=== PATIENT | female | born 1980 | race Caucasian/White ===

== ENCOUNTER 2018-07-10 23:59 | Inpatient (IN) | payer SELFPAY ==
[~2018-07-10] VITALS: Ht 172.7 cm; Wt 113.0 kg
[2018-07-11] MEDS ORDERED: D5%-LACTATED RINGERS 1,000 ML IV SCH (00:20)
[2018-07-11] MEDS ORDERED: LACTATED RINGERS 1,000 ML IV SCH ×2 (00:20→01:27)
[2018-07-11] MEDS ORDERED: OXYTOCIN 30U/ 0.9% NaCL 500ML 500 ML IV ONE (00:20)
[2018-07-11] MEDS ORDERED: NEWBORN KIT ONE (00:22)
[2018-07-11] MEDS ORDERED: LIDOCAINE/PF 1%, 30ML ONE (00:22)
[2018-07-11] MEDS ORDERED: MISOPROSTOL 200 MCG TABLET ONE (00:22)
[2018-07-11] MEDS ORDERED: OXYTOCIN 30U/ 0.9% NaCL 500ML 500 ML ONE ×2 (00:23→02:53)
[2018-07-11] MEDS ORDERED: FENTANYL PF 100 MCG/2ML IVPush PRN (00:30)
[2018-07-11] MEDS ORDERED: TERBUTALINE 1 MG/ML, 1ML IVPush PRN (00:30)
[2018-07-11] MEDS ORDERED: FENTANYL PF 100 MCG/2ML IV PRN (00:30)
[2018-07-11] MEDS ORDERED: ONDANSETRON 2MG/ML, 2ML IVPush PRN (00:30)
[2018-07-11] MEDS ORDERED: CALCIUM CARBONATE 500 MG TAB.CHEW PO PRN (00:30)
[2018-07-11] MEDS ORDERED: PLEASE ENTER ALLERGIES MC SCH (00:30)
[2018-07-11] MEDS ORDERED: SODIUM CITRATE/CITRIC ACID 30 ML UDC PO PRN (00:30)
[2018-07-11] MEDS ORDERED: METOCLOPRAMIDE 5 MG/ML, 2ML IVPush PRN (00:30)
[2018-07-11 00:48] LABS: BASOPHILS # (AUTO) 0.04 x10^3/uL (0-0.1); BASOPHILS % (AUTO) 0 % (0-1); EOSINOPHILS # (AUTO) 0.05 x10^3/uL (0-0.4); EOSINOPHILS % (AUTO) 0 % (1-7); LYMPHOCYTES # (AUTO) 1.33 x10^3/uL (1-3.4); LYMPHOCYTES % (AUTO) 10 % (22-44); MD NO; MEAN CORPUSCULAR HEMOGLOBIN 34.7 pg (27.0-34.8); MEAN CORPUSCULAR HGB CONC 34.4 g/dL (32.4-35.8); MEAN CORPUSCULAR VOLUME 100.7 fL (80-100); MEAN PLATELET VOLUME 7.4 fL (7.4-10.4); MONOCYTES # (AUTO) 1.34 x10^3/uL (0.2-0.8); MONOCYTES % (AUTO) 10 % (2-9); NEUTROPHILS # (AUTO) 11.09 x10^3/uL (1.8-6.8); NEUTROPHILS % (AUTO) 80 % (42-75); PLATELET COUNT 198 x10^3/uL (130-400); RED BLOOD COUNT 3.76 x10^6/uL (3.82-5.3); RED CELL DISTRIBUTION WIDTH 13.3 % (9.6-15.2)
[2018-07-11] MEDS ORDERED: FENTANYL/BUPIV./NS/PF 250 ML EPIDCONT ONE (01:02)
[2018-07-11] MEDS ORDERED: BUPIVACAINE 0.25% ONE (01:02)
[2018-07-11] MEDS ORDERED: FENTANYL/BUPIV./NS/PF 250 ML EPIDCONT SCH (01:27)
[2018-07-11] MEDS ORDERED: EPHEDRINE 50 MG/ML, 1ML IVPush PRN (01:30)
[2018-07-11] MEDS ORDERED: LACTATED RINGERS 1,000 ML IVBOLUS PRN (01:30)
[2018-07-11] MEDS ORDERED: NALOXONE 0.4 MG/ML, 1ML IVPush PRN (01:30)
[2018-07-11] MEDS ORDERED: OXYTOCIN 30U/ 0.9% NaCL 500ML 500 ML IV SCH (02:14)
[2018-07-11] MEDS ORDERED: OXYcodone/APAP 5/325MG TABLET PO PRN (02:30)
[2018-07-11] MEDS ORDERED: GLYCERIN ADULT SUPP PR PRN (02:30)
[2018-07-11] MEDS ORDERED: MISOPROSTOL 200 MCG TABLET PR PRN (02:30)
[2018-07-11] MEDS ORDERED: DOCUSATE 100 MG CAPSULE PO PRN (02:30)
[2018-07-11] MEDS ORDERED: ACETAMINOPHEN 325 MG TABLET PO PRN (02:30)
[2018-07-11] MEDS ORDERED: ONDANSETRON 2MG/ML, 2ML IV PRN (02:30)
[2018-07-11] MEDS ORDERED: METHYLERGONOVINE 0.2 MG/ML IM PRN (02:30)
[2018-07-11] MEDS ORDERED: METOCLOPRAMIDE 5 MG/ML, 2ML IV PRN (02:30)
[2018-07-11] MEDS ORDERED: OXYcodone IR 5MG TABLET PO PRN (02:30)
[2018-07-11 08:43] VITALS: BP 120/80
[2018-07-11] MEDS: PRENATAL VIT/IRON/FA 1 EACH TABLET PO SCH (09:00)
[2018-07-11 09:47] LABS: BASOPHILS # (AUTO) 0.04 x10^3/uL (0-0.1); BASOPHILS % (AUTO) 0 % (0-1); EOSINOPHILS # (AUTO) 0.04 x10^3/uL (0-0.4); EOSINOPHILS % (AUTO) 0 % (1-7); LYMPHOCYTES % (AUTO) 12 % (22-44); MD NO; MEAN CORPUSCULAR HEMOGLOBIN 34.6 pg (27.0-34.8); MEAN CORPUSCULAR HGB CONC 34.3 g/dL (32.4-35.8); MEAN CORPUSCULAR VOLUME 100.9 fL (80-100); MEAN PLATELET VOLUME 7.3 fL (7.4-10.4); MONOCYTES # (AUTO) 1.01 x10^3/uL (0.2-0.8); MONOCYTES % (AUTO) 8 % (2-9); NEUTROPHILS # (AUTO) 9.56 x10^3/uL (1.8-6.8); NEUTROPHILS % (AUTO) 79 % (42-75); PLATELET COUNT 179 x10^3/uL (130-400); RED BLOOD COUNT 3.58 x10^6/uL (3.82-5.3); RED CELL DISTRIBUTION WIDTH 13.3 % (9.6-15.2)
[2018-07-11] MEDS: IBUPROFEN 600 MG TABLET PO PRN (12:02)
[2018-07-11 12:11] VITALS: BP 133/84
[2018-07-11 16:30] VITALS: BP 126/84
[2018-07-11 19:35] VITALS: BP 121/82
[2018-07-12 00:01] VITALS: BP 134/88
[2018-07-12 07:00] VITALS: BP 120/82
[2018-07-12] MEDS: PRENATAL VIT/IRON/FA 1 EACH TABLET PO SCH (07:23)
[2018-07-12] MEDS: IBUPROFEN 600 MG TABLET PO PRN (07:23)
== END 2018-07-12 11:48 | disposition home or self-care (01) | DRG 807 ==
LOC: LDOP 23:59 → LDIP 07-11 00:22 → 2NW 07-11 07:47
PROVIDERS: ADMIT Obstetrics & Gynecology; ATTEND Obstetrics & Gynecology
PROC: 10E0XZZ Delivery of Products of Conception, External Approach (ICD-10-PCS; principal; 2018-07-11)
PROC: 0HQ9XZZ Repair Perineum Skin, External Approach (ICD-10-PCS; 2018-07-11)
PROC: 10907ZC Drainage of Amniotic Fluid, Therapeutic from Products of Conception, Via Natural or Artificial Opening (ICD-10-PCS; 2018-07-11)
PROC: 3E0R3BZ Introduction of Anesthetic Agent into Spinal Canal, Percutaneous Approach (ICD-10-PCS; 2018-07-11)
PROC: 00HU33Z Insertion of Infusion Device into Spinal Canal, Percutaneous Approach (ICD-10-PCS; 2018-07-11)
DX: O69.81X0 Labor and delivery complicated by cord around neck, without compression, not applicable or unspecified (principal); Z37.0 Single live birth; O70.0 First degree perineal laceration during delivery; O77.0 Labor and delivery complicated by meconium in amniotic fluid; Z3A.40 40 weeks gestation of pregnancy; N84.1 Polyp of cervix uteri; O34.43 Maternal care for other abnormalities of cervix, third trimester; O99.214 Obesity complicating childbirth
CPT/HCPCS: 36415; 82803; 85025; 86850; 86900; G0378; J3490; J2590; J3010; J7120

== ENCOUNTER 2020-09-24 12:14 | Inpatient (IN) | payer OTHER ==
[~2020-09-24] VITALS: Ht 172.7 cm; Wt 111.9 kg
[2020-09-24] MEDS: LACTATED RINGERS 1,000 ML IV SCH (11:07)
[2020-09-24] MEDS ORDERED: PREN1TAB60 PO (12:26)
[2020-09-24 12:35] VITALS: BP 144/86
[2020-09-24 12:55] LABS: MICROSCOPIC INDICATED
[2020-09-24 12:58] LABS: CREATININE,URINE RANDOM 42.5 mg/dL
[2020-09-24 13:07] LABS: BASOPHILS % (AUTO) 0 % (0-1); EOSINOPHILS % (AUTO) 1 % (1-7); LYMPHOCYTES % (AUTO) 20 % (22-44); MEAN CORPUSCULAR HEMOGLOBIN 33.9 pg (27.0-34.8); MEAN CORPUSCULAR HGB CONC 34.4 g/dL (32.4-35.8); MEAN PLATELET VOLUME 7.8 fL (7.4-10.4); MONOCYTES % (AUTO) 11 % (2-9); NEUTROPHILS % (AUTO) 68 % (42-75); PLATELET COUNT 213 x10^3/uL (130-400); RED BLOOD COUNT 3.84 x10^6/uL (3.82-5.3); RED CELL DISTRIBUTION WIDTH 12.9 % (9.6-15.2)
[2020-09-24 13:08] LABS: MD NO
[2020-09-24 13:15] LABS: ALANINE AMINOTRANSFERASE 17 U/L (12-78); ALBUMIN 2.7 g/dL (3.4-5.0); ANION GAP 9 mmol/L (5-15); CALCIUM 9.1 mg/dL (8.5-10.1); CHLORIDE 108 mmol/L (98-107); CREATININE 0.51 mg/dL (0.55-1.02)
[2020-09-24 13:17] LABS: ALKALINE PHOSPHATASE 96 U/L (45-117); BILIRUBIN,TOTAL 0.7 mg/dL (0.2-1.0); TOTAL PROTEIN 6.3 g/dL (6.4-8.2)
[2020-09-24 13:21] LABS: BILIRUBIN, DIRECT < 0.1 mg/dL (0.1-0.2)
[2020-09-24] MEDS ORDERED: TERBUTALINE 1 MG/ML, 1ML SQ ONE (14:00)
[2020-09-24] MEDS ORDERED: TERBUTALINE 1 MG/ML, 1ML ONE (16:34)
[2020-09-24] MEDS ORDERED: CALCIUM CARBONATE 500 MG TAB.CHEW PO PRN (19:00)
[2020-09-24] MEDS ORDERED: TERBUTALINE 1 MG/ML, 1ML IVPush PRN (19:00)
[2020-09-24] MEDS ORDERED: TERBUTALINE 1 MG/ML, 1ML SQ PRN (19:00)
[2020-09-24] MEDS ORDERED: OXYTOCIN 30U/ 0.9% NaCL 500ML 500 ML IV ONE (19:00)
[2020-09-24] MEDS ORDERED: ONDANSETRON 2MG/ML, 2ML IVPush PRN (19:00)
[2020-09-24] MEDS ORDERED: FENTANYL PF 100 MCG/2ML IVPush PRN (19:00)
[2020-09-24] MEDS ORDERED: MISOPROSTOL 25 MCG TABLET ONE (19:18)
[2020-09-24] MEDS ORDERED: NEWBORN KIT ONE (19:39)
[2020-09-24] MEDS ORDERED: LIDOCAINE 1%, 20ML ONE (19:40)
[2020-09-24] MEDS: MISOPROSTOL 25 MCG TABLET VG PRN (19:46)
[2020-09-24] MEDS: SODIUM CHLORIDE FLUSH 3ML SYRINGE IVF SCH (21:00)
[2020-09-25] MEDS: D5%-LACTATED RINGERS 1,000 ML IV SCH (03:00)
[2020-09-25] MEDS ORDERED: OXYTOCIN 30U/ 0.9% NaCL 500ML 500 ML ONE (03:41)
[2020-09-25] MEDS ORDERED: OXYTOCIN 30U/ 0.9% NaCL 500ML 500 ML IV PRN ×2 (04:00→11:00)
[2020-09-25] MEDS ORDERED: MISOPROSTOL 25 MCG TABLET ONE (06:48)
[2020-09-25] MEDS: MISOPROSTOL 25 MCG TABLET VG PRN (07:00)
[2020-09-25] MEDS: SODIUM CHLORIDE FLUSH 3ML SYRINGE IVF SCH (09:00)
[2020-09-25] MEDS: LACTATED RINGERS 1,000 ML IV SCH ×2 (11:00→15:00)
[2020-09-25] MEDS ORDERED: LABETALOL 5MG/ML, 20ML ONE (13:05)
[2020-09-25] MEDS ORDERED: MISOPROSTOL 200 MCG TABLET ONE (13:14)
[2020-09-25] MEDS ORDERED: LABETALOL 5MG/ML, 20ML IVPush PRN (13:30)
[2020-09-25] MEDS ORDERED: SODIUM CITRATE/CITRIC ACID 15 ML UDC ONE (15:08)
[2020-09-25] MEDS ORDERED: METOCLOPRAMIDE 5 MG/ML, 2ML ONE (15:08)
[2020-09-25] MEDS ORDERED: FENTANYL/BUPIV./NS/PF 250 ML EPIDCONT ONE (18:46)
[2020-09-25] MEDS ORDERED: BUPIVACAINE 0.25% ONE (18:46)
[2020-09-25] MEDS ORDERED: NALOXONE 0.4 MG/ML, 1ML IVPush PRN (19:30)
[2020-09-25] MEDS ORDERED: DIPHENHYDRAMINE 50 MG/ML, 1ML IVPush PRN (19:30)
[2020-09-25] MEDS ORDERED: ONDANSETRON 2MG/ML, 2ML IVPush PRN (19:30)
[2020-09-25] MEDS ORDERED: LACTATED RINGERS 1,000 ML IVBOLUS PRN (19:30)
[2020-09-25] MEDS ORDERED: EPHEDRINE 50 MG/ML, 1ML IVPush PRN (19:30)
[2020-09-25] MEDS ORDERED: LACTATED RINGERS 1,000 ML IV SCH (19:30)
[2020-09-25] MEDS ORDERED: FENTANYL/BUPIV./NS/PF 250 ML EPIDCONT SCH (19:30)
[2020-09-26] MEDS ORDERED: OXYTOCIN 30U/ 0.9% NaCL 500ML 500 ML ONE ×2 (01:39→07:20)
[2020-09-26] MEDS ORDERED: LIDOCAINE/MPF 2%-EPI 1:200K, 20 ML ONE (06:17)
[2020-09-26] MEDS: D5%-LACTATED RINGERS 1,000 ML IV SCH (06:19)
[2020-09-26] MEDS ORDERED: IBUPROFEN 800 MG TABLET PO PRN (07:30)
[2020-09-26] MEDS ORDERED: OXYcodone IR 5MG TABLET PO PRN (07:30)
[2020-09-26] MEDS ORDERED: SIMETHICONE 80 MG CHEW TAB PO PRN (07:30)
[2020-09-26] MEDS ORDERED: OXYTOCIN 30U/ 0.9% NaCL 500ML 500 ML IV SCH (07:30)
[2020-09-26] MEDS ORDERED: CARBOPROST TROMETHAMINE 250 MCG/ML, 1ML IM PRN (07:30)
[2020-09-26] MEDS ORDERED: IBUPROFEN 600 MG TABLET PO PRN (07:30)
[2020-09-26] MEDS ORDERED: DOCUSATE 100 MG CAPSULE PO PRN (07:30)
[2020-09-26] MEDS ORDERED: ACETAMINOPHEN 325 MG TABLET PO PRN (07:30)
[2020-09-26] MEDS ORDERED: TRANEXAMIC ACID 1,000 MG in SODIUM CHLORIDE 0.9% 100 ML IVPB ONE (07:30)
[2020-09-26] MEDS ORDERED: OXYcodone/APAP 5/325MG TABLET PO PRN (07:30)
[2020-09-26] MEDS ORDERED: MISOPROSTOL 200 MCG TABLET PR ONE (08:30)
[2020-09-26] MEDS: PRENATAL VIT/IRON/FA 1 EACH TABLET PO SCH (09:00)
[2020-09-26 09:30] VITALS: BP 134/84
[2020-09-26 13:00] VITALS: BP 129/83
[2020-09-26 16:02] LABS: MEAN CORPUSCULAR HEMOGLOBIN 33.8 pg (27.0-34.8); MEAN CORPUSCULAR HGB CONC 33.9 g/dL (32.4-35.8); MEAN PLATELET VOLUME 8.3 fL (7.4-10.4); PLATELET COUNT 213 x10^3/uL (130-400); RED BLOOD COUNT 3.76 x10^6/uL (3.82-5.3); RED CELL DISTRIBUTION WIDTH 12.8 % (9.6-15.2)
[2020-09-26 16:25] VITALS: BP 132/80
[2020-09-26 16:36] LABS: MD YES
[2020-09-26 16:38] LABS: BAND#(MANUAL) 0.52 x10^3/uL; BANDS%(MANUAL) 2 % (0-7); LYMPH#(MANUAL) 1.83 x10^3/uL (1-3.4); LYMPHS% (MANUAL) 7 % (22-44); MONOS#(MANUAL) 1.05 x10^3/uL (0.3-2.7); MONOS% (MANUAL) 4 % (2-9); SEG#(MANUAL) 22.79 x10^3/uL (1.8-6.8); SEGS% (MANUAL) 87 % (42-75)
[2020-09-26 16:39] LABS: <PLATELET ESTIMATE> ADEQUATE; <PLT MORPHOLOGY> NORMAL PLT MORPH; <RBC MORPHOLOGY> NORMAL
[2020-09-26 19:45] VITALS: BP 132/88
[2020-09-27] VITALS: BP 125/86
[2020-09-27 04:30] VITALS: BP 136/88
[2020-09-27 05:30] LABS: BASOPHILS % (AUTO) 0 % (0-1); EOSINOPHILS % (AUTO) 3 % (1-7); LYMPHOCYTES % (AUTO) 15 % (22-44); MEAN CORPUSCULAR HEMOGLOBIN 34.5 pg (27.0-34.8); MEAN CORPUSCULAR HGB CONC 34.3 g/dL (32.4-35.8); MEAN PLATELET VOLUME 7.8 fL (7.4-10.4); MONOCYTES % (AUTO) 7 % (2-9); NEUTROPHILS % (AUTO) 75 % (42-75); PLATELET COUNT 205 x10^3/uL (130-400); RED BLOOD COUNT 3.26 x10^6/uL (3.82-5.3); RED CELL DISTRIBUTION WIDTH 12.9 % (9.6-15.2)
[2020-09-27 05:46] LABS: MD NO
[2020-09-27 07:20] VITALS: BP 133/87
[2020-09-27] MEDS: PRENATAL VIT/IRON/FA 1 EACH TABLET PO SCH (09:00)
== END 2020-09-27 12:00 | disposition home or self-care (01) | DRG 806 ==
LOC: LDOP 12:14 → OBSVTOIN 13:56 → LDIP 13:56 → 2NW 09-26 09:25
PROVIDERS: ADMIT Obstetrics & Gynecology; ATTEND Obstetrics & Gynecology
PROC: 10S0XZZ Reposition Products of Conception, External Approach (ICD-10-PCS; 2020-09-25)
PROC: 10H07YZ Insertion of Other Device into Products of Conception, Via Natural or Artificial Opening (ICD-10-PCS; 2020-09-25)
PROC: 10E0XZZ Delivery of Products of Conception, External Approach (ICD-10-PCS; principal; 2020-09-26)
PROC: 10907ZC Drainage of Amniotic Fluid, Therapeutic from Products of Conception, Via Natural or Artificial Opening (ICD-10-PCS; 2020-09-26)
PROC: 3E033VJ Introduction of Other Hormone into Peripheral Vein, Percutaneous Approach (ICD-10-PCS; 2020-09-26)
PROC: 3E0P7VZ Introduction of Hormone into Female Reproductive, Via Natural or Artificial Opening (ICD-10-PCS; 2020-09-26)
PROC: 3E0R3BZ Introduction of Anesthetic Agent into Spinal Canal, Percutaneous Approach (ICD-10-PCS; 2020-09-26)
PROC: 00HU33Z Insertion of Infusion Device into Spinal Canal, Percutaneous Approach (ICD-10-PCS; 2020-09-26)
DX: O14.04 Mild to moderate pre-eclampsia, complicating childbirth (principal); D62 Acute posthemorrhagic anemia; Z37.0 Single live birth; O32.0XX0 Maternal care for unstable lie, not applicable or unspecified; O32.1XX0 Maternal care for breech presentation, not applicable or unspecified; O32.2XX0 Maternal care for transverse and oblique lie, not applicable or unspecified; O62.3 Precipitate labor; O63.9 Long labor, unspecified; O70.0 First degree perineal laceration during delivery; O99.02 Anemia complicating childbirth; O99.214 Obesity complicating childbirth; E66.9 Obesity, unspecified; Z3A.38 38 weeks gestation of pregnancy; Z82.3 Family history of stroke; Z82.49 Family history of ischemic heart disease and other diseases of the circulatory system; Z83.3 Family history of diabetes mellitus; O09.523 Supervision of elderly multigravida, third trimester; Z67.90 Unspecified blood type, Rh positive; Z20.822 Contact with and (suspected) exposure to COVID-19
CPT/HCPCS: 36415; J7121; 76815; 80053; 81001; 82248; 82570; 84156; 84550; 85025; 86592; 86850; 86900; 87635; G0378; J2590; J7120